=== PATIENT | male | born 1940 | race Caucasian/White ===

== ENCOUNTER 2019-02-25 13:01 | Inpatient (IN) | payer OTHER ==
[~2019-02-25] VITALS: Ht 171.4 cm; Wt 72.2 kg
[2019-02-25] MEDS: METOPROLOL 25 MG TAB PO SCH (03:16)
[2019-02-25] MEDS: INSULIN ASPART [NOVOLOG] 3 ML PEN SC SCH (03:16)
--- NOTE | 2019-02-25 13:05 | ERD ---
ER Documentation Chief Complaint Chief Complaint Dizziness HPI The patient is a 78-year-old male, presenting to the ER because of dizziness. He was waiting in the waiting room for dialysis, when the nurse noted his heart rate was slow in 30, therefore 911 was called to bring him to the hospital. He complained of dizziness when he was moved from the chair to EMS stretcher. He denies headache, neck pain, chest pain, dyspnea, abdominal pain, vomiting, dysuria, diarrhea. He used to smoke until 3 years ago, denies drinking Past medical history: Chronic kidney disease on hemodialysis Sunday and Sunday, diabetes mellitus, dyslipidemia Past surgical history: Left upper extremity AV fistula ROS All systems reviewed and are negative except as per history of present illness. Medications Home Meds Reported Medications Losartan Potassium* (Losartan Potassium*) 25 Mg Tablet, 25 MG PO DAILY, TAB 02/25/19 Furosemide* (Furosemide*) 40 Mg Tablet, 40 MG PO BID, TAB 02/25/19 Metoprolol Tartrate* (Lopressor*) 25 Mg Tab, 25 MG PO BID, #60 TAB 02/25/19 Sevelamer Carbonate* (Renvela*) 800 Mg Tablet, 1.6 GM PO WITH MEALS, TAB 02/25/19 Amlodipine Besylate* (Amlodipine Besylate*) 10 Mg Tablet, 10 MG PO DAILY, #30 TAB 02/25/19 Hydralazine Hcl* (Hydralazine Hcl*) 50 Mg Tab, 50 MG PO Q6H PRN for HTN, #60 TAB 02/25/19 Allergies Allergies: Coded Allergies: No Known Allergy (Unverified , 02/25/19) Physical Exam Vitals Vital Signs Date Temp Pulse Resp B/P (MAP) Pulse Ox O2 O2 Flow FiO2 Time Delivery Rate 02/25/19 91 21 140/51 97 High Flow 10.0 14:00 (80) 02/25/19 98 21 139/94 97 High Flow 10.0 13:46 (109) 02/25/19 42 17 147/47 97 Nasal 2.0 13:30 (80) Cannula 02/25/19 Nasal 2 13:22 Cannula 02/25/19 42 21 148/50 97 Room Air 2.0 13:21 (82) Nasal Cannula 02/25/19 41 20 100 Nasal 2.0 13:18 Cannula 02/25/19 97.6 40 20 136/42 100 13:13 (73) Physical Exam Const: No acute distress. Head: Atraumatic. Eyes: Normal Conjunctiva. ENT: Normal External Ears, Nose and Mouth. Neck: Full range of motion. No meningismus. Resp: Clear to auscultation bilaterally. Cardio: Regular bradycardic Abd: Soft, non distended, normal bowel sounds, non tender. Skin: No petechiae or rashes. Back: No midline or flank tenderness. Ext: No cyanosis, or edema. Neur: Awake and alert. No focal deficit Psych: Normal Mood and Affect. Result Diagram: 02/25/19 1320 02/25/19 1320 Results 24 hrs Laboratory Tests Test 02/25/19 13:20 02/25/19 13:21 02/25/19 13:48 02/25/19 14:09 White Blood Count 5.6 10^3/ul Red Blood Count 3.19 10^6/ul Hemoglobin 10.1 g/dl Hematocrit 33.0 % Mean Corpuscular 103.4 fl Volume Mean Corpuscular 31.7 pg Hemoglobin Mean Corpuscular 30.6 g/dl Hemoglobin Concent Red Cell 13.7 % Distribution Width Platelet Count 95 10^3/UL Mean Platelet 13.3 fl Volume Immature 0.400 % Granulocytes % Neutrophils % 56.4 % Lymphocytes % 31.7 % Monocytes % 9.9 % Eosinophils % 1.1 % Basophils % 0.5 % Nucleated Red Blood 0.0 /100WBC Cells % Immature 0.020 10^3/ul Granulocytes # Neutrophils # 3.1 10^3/ul Lymphocytes # 1.8 10^3/ul Monocytes # 0.6 10^3/ul Eosinophils # 0.1 10^3/ul Basophils # 0.0 10^3/ul Nucleated Red Blood 0.0 10^3/ul Cells # Prothrombin Time 12.8 Sec Prothrombin Time 1.0 Ratio INR International 0.95 Normalized Ratio Activated 36.6 Sec Partial Thromboplas t Time Sodium Level 135 mmol/L Potassium Level 7.1 mmol/L Chloride Level 102 mmol/L Carbon Dioxide 18 mmol/L Level Anion Gap 15 Blood Urea Nitrogen 56 mg/dl Creatinine 8.02 mg/dl Est Glomerular mL/min Filtrat Rate mL/min Glucose Level 95 mg/dl Calcium Level 9.7 mg/dl Magnesium Level 2.2 mg/dl Total Bilirubin 0.0 mg/dl Direct Bilirubin 0.00 mg/dl Indirect Bilirubin 0.0 mg/dl Aspartate Amino 20 IU/L Transf (AST/SGOT) Alanine 11 IU/L Aminotransferase (A LT/SGPT) Alkaline 47 IU/L Phosphatase Troponin I < 0.012 ng/ml Total Protein 7.4 g/dl Albumin 4.3 g/dl Globulin 3.10 g/dl Albumin/Globulin 1.38 Ratio Bedside Glucose 93 mg/dL 103 mg/dL 296 mg/dL Current Medications Medications Dose Sig/Fredy Start Time Status Last (Trade) Ordered Route PRN Stop Time Admin Dose Reason Admin Albuterol 15 mg ONCE STAT 02/25/19 DC 02/25/19 (Proventil INH 13:10 13:27 0.5% (Neb)) 02/25/19 13:13 Calcium 1,000 mg ONCE STAT 02/25/19 DC 02/25/19 Chloride IV 13:10 13:49 (Ca Chloride 02/25/19 13:13 10% Syg) Dextrose 100 ml ONCE ONCE 02/25/19 DC 02/25/19 (D50w IV 13:30 13:49 Syringe) 02/25/19 13:31 Insulin 10 unit ONCE STAT 02/25/19 DC 02/25/19 Human IVP 13:13 13:51 Regular 02/25/19 13:15 (Humulin R) Dextrose ONCE PRN 02/25/19 (D50w IV DECREASED 13:30 Syringe) GLUCOSE Sodium 30 gm ONCE ONCE 02/25/19 DC Polystyrene PO 14:30 Sulfonate 02/25/19 14:31 (Kayexalate) Procedures/[place] [id number] Radiology Main Line: [phone] DIAGNOSTIC IMAGING REPORT Patient: LEI DELCID : 1940 Age: 78 Sex: M MR #: [id number] DOS: 02/25/19 1305 Ordering MD: ABDULLAHI RAJAN MD Location: E/R Room/Bed: PROCEDURE: XR Chest. CLINICAL INDICATION: Shortness of breath TECHNIQUE: Single portable view of the chest was obtained COMPARISON: No priors for comparison FINDINGS: The trachea is midline. The cardiac silhouette and pulmonary vascularity are prominent. The lungs are clear. The costophrenic angles are sharp. Atherosclerotic calcification of the aorta. IMPRESSION: 1. Cardiomegaly and borderline central pulmonary vascular congestion. 2. Atherosclerotic disease of the aorta. RPTAT: AAPP Physician Nathan Date Time Electronically viewed and signed by Viktoriya Gagnon Physician on 02/25/2019 13:39 JL/ CC: ABDULLAHI RAJAN MD [id number] EKG: At 1:08 PM read by emergency physician Rate/Rhythm: Sinus bradycardia 41 beats/min QRS, ST, T-waves: No ST elevation, no T inversion, first-degree AV block, left bundle branch block Impression: Abnormal EKG EKG: At 2:20 PM after hyperkalemia treatment read by emergency physician Rate/Rhythm: Normal Sinus Rhythm 82 beats/min QRS, ST, T-waves: No ST elevation, no T inversion, 1st degree AV block, RWA, NSIVB Impression: Abnormal EKG MEDICAL MAKING DECISION: The patient is a 78-year-old male, presenting with acute bradycardia arrhythmia most likely due to acute hyperkalemia, acute fluid overload. He was immediately treated as soon as he arrived to the ER after I reviewed the EKG that show peaked T waves with albuterol 15 mg nebulizer, calcium chloride 1 g IV, 2 Ampules of D50 IV, 10 units of regular insulin IV and Kayexalate 30 g p.o. for presumed acute hyperkalemia. He responded well to the aforementioned treatment, he returned to normal sinus rhythm, potassium came back at 7.1 The differential diagnoses considered include but are not limited to dietary noncompliance, missed dialysis, electrolyte imbalance, sick sinus syndrome, ACS Critical Care: Time: 35 minutes excluding all billable procedures. Treatments/Evaluations: Close monitoring and treatment of unstable vital signs, cardiorespiratory, and neurologic status, while maintaining tight balance of fluid, respiratory, and cardiac interventions. Consultation: I discussed the patient with the [facility] physician Dr. Alonzo at 2:20 PM, who was made aware of the lab, the treatment, the patient condition. He authorized the admission to panel Departure Diagnosis: Primary Impression: Hyperkalemia Additional Impressions: Bradyarrhythmia Anemia Fluid overload Condition: Serious Comments I discussed the findings with the patient. I discussed the patient with Dr. Adhikari at 2:25 PM, who was made aware of the lab, the treatment, the patient condition and the need for emergent dialysis. The patient is admitted to telemetry Disclaimer: Inadvertent spelling and grammatical errors are likely due to EHR/dictation software use and do not reflect on the overall quality of patient care. Also, please note that the electronic time recorded on this note does not necessarily reflect the actual time of the patient encounter. ABDULLAHI RAJAN MD Feb 25, 2019 13:05
[2019-02-25] MEDS ORDERED: CA CHLORIDE 10% 10 ML SYRINGE IV STA (13:10)
[2019-02-25] MEDS ORDERED: ALBUTEROL 0.5% (NEB) 2.5 MG/0.5 ML AMP INH STA (13:10)
[2019-02-25] MEDS ORDERED: INSULIN REGULAR, HUMAN 100 UNIT/1 ML 3ML VIAL IVP STA (13:13)
[2019-02-25] MEDS ORDERED: DEXTROSE 50% 50 ML SYRINGE IV PRN ×3 (13:30→16:00)
[2019-02-25] MEDS ORDERED: DEXTROSE 50% 50 ML SYRINGE IV ONE (13:30)
[2019-02-25] MEDS ORDERED: HYDR-3672 PO (14:12)
[2019-02-25] MEDS ORDERED: AMLO-147 PO (14:13)
[2019-02-25] MEDS ORDERED: METO-448 PO (14:14)
[2019-02-25] MEDS ORDERED: SEVE800T7 PO (14:14)
[2019-02-25] MEDS ORDERED: LOSA25TA12 PO (14:15)
[2019-02-25] MEDS ORDERED: FURO40TA4 PO (14:15)
[2019-02-25] MEDS ORDERED: NA POLYST SULFON 15 GM/60 ML BTL PO ONE (14:30)
--- NOTE | 2019-02-25 15:13 | HP ---
Date/Time of Note Date/Time of Note DATE: 02/25/19 TIME: 15:13 Assessment/Plan VTE Prophylaxis Pharmacological prophylaxis: heparin Lines/Catheters IV [facility]from [facility]): [facility] Assessment/Plan Hospital Course 78-year-old male with comorbidities including hypertension, diabetes mellitus, and end stage renal disease on hemodialysis who was transferred from his dialysis clinic because of reported bradycardia who was found to have underlying hyperkalemia and fluid overload, who will be admitted to inpatient setting for further treatment and evaluation. 1. Reported bradycardia. Possibly secondary to underlying hyperkalemia. Continue telemetry monitoring. Correct underlying hyperkalemia. 2. Hyperkalemia. Status post potassium exchange resting. Patient needs stat hemodialysis. Nephrology has been consulted. 3. Hypertension. Resume antihypertensives. 4. Diabetes mellitus. Start the patient on sliding scale insulin along with basal insulin. Obtain hemoglobin A1c to evaluate the blood glucose control over the past 3 months. 5. Acute encephalopathy. Unknown baseline. Most probably toxic metabolic in origin secondary to underlying electrolyte imbalances. If mental status not improving with hemodialysis, will consider imaging studies of the brain. 6. Normocytic anemia. Most probably anemia of chronic kidney disease. Monitor H&H closely. Plan: The patient will be admitted to inpatient telemetry floor. The patient will be started on a carbohydrate control, low potassium diet. The patient will be started on DVT prophylaxis. The patient will remain a full code. Activities will be with assist. The rest of the patient's management will be based on the clinical course, inputs from consultants, and the results of diagnostic studies. Based on the patient's clinical presentation, he most probably requires at least 1 midnight's stay for further management and evaluation of his clinical presentation. The patient was seen in collaboration with Dr. Adhikari. Result Diagram: 02/25/19 1320 02/25/19 1320 Results 24hrs Laboratory Tests Test 02/25/19 13:20 02/25/19 13:21 02/25/19 13:48 02/25/19 14:09 White Blood Count 5.6 Red Blood Count 3.19 L Hemoglobin 10.1 L Hematocrit 33.0 L Mean Corpuscular 103.4 H Volume Mean Corpuscular 31.7 Hemoglobin Mean Corpuscular 30.6 L Hemoglobin Concent Red Cell 13.7 Distribution Width Platelet Count 95 L Mean Platelet Volume 13.3 H Immature 0.400 Granulocytes % Neutrophils % 56.4 Lymphocytes % 31.7 Monocytes % 9.9 Eosinophils % 1.1 Basophils % 0.5 Nucleated Red Blood 0.0 Cells % Immature 0.020 Granulocytes # Neutrophils # 3.1 Lymphocytes # 1.8 Monocytes # 0.6 Eosinophils # 0.1 Basophils # 0.0 Nucleated Red Blood 0.0 Cells # Prothrombin Time 12.8 Prothrombin Time 1.0 Ratio INR International 0.95 Normalized Ratio Activated 36.6 H Partial Thromboplast Time Sodium Level 135 Potassium Level 7.1 *H Chloride Level 102 Carbon Dioxide Level 18 L Anion Gap 15 H Blood Urea Nitrogen 56 H Creatinine 8.02 H Est Glomerular Filtrat Rate mL/min Glucose Level 95 Calcium Level 9.7 Magnesium Level 2.2 Total Bilirubin 0.0 L Direct Bilirubin 0.00 Indirect Bilirubin 0.0 Aspartate Amino 20 Transf (AST/SGOT) Alanine 11 L Aminotransferase (AL T/SGPT) Alkaline Phosphatase 47 Troponin I < 0.012 Total Protein 7.4 Albumin 4.3 Globulin 3.10 Albumin/Globulin 1.38 Ratio Bedside Glucose 93 103 296 H HPI/ROS Admit Date/Time Admit Date/Time Hx of Present Illness Reason for admission: Transferred from hemodialysis facility because of bradycardia. Hyperkalemia. Consultants 1. Jose Ruano MD, Nephrology. This is a 78-year-old male with a past medical history of hypertension, diabetes mellitus, and end-stage renal disease on hemodialysis T. The patient went to his hemodialysis session today at outpatient hemodialysis clinic and he was waiting for his session. Meanwhile, the nurses noticed that the patient has been bradycardic. Therefore, the patient was brought to the emergency room. The patient is not the best historian. He denied any chest pain, dyspnea, nausea, or diaphoresis. He denied any abdominal pain, diarrhea, or constipation. He denied any fevers or chills. In the emergency room, the patient was noticed to be hyperkalemic (7.1). The patient's chest x-ray was showing cardiomegaly and borderline central pulmonary vascular congestion. The patient was treated with potassium exchange resin, regular insulin IV push, calcium chloride, and inhaled albuterol in the emergenc y room. ROS Constitutional: no complaints Eyes: no complaints ENT: no complaints Respiratory: no complaints Cardiovascular: no complaints Gastrointestinal: no complaints Genitourinary: no complaints Musculoskeletal: no complaints Skin: no complaints Neurologic: confusion Endocrine: no complaints Lymphatic: no complaints Psychological: no complaints Immunologic: no complaints PMH/Family/Social Past Medical History 1. Hypertension. 2. End-stage renal disease on hemodialysis. 3. Diabetes mellitus. Medications Current Medications Dextrose (D50w Syringe) ONCE PRN IV DECREASED GLUCOSE; Start 02/25/19 at 13:30 Coded Allergies: NSAIDS (Non-Steroidal Anti-Inflamma (Verified Allergy, Unknown, 02/26/19) TAKEN FROM MED RECORD FROM [facility] meperidine (Verified Allergy, Unknown, 02/26/19) TAKEN FROM PT RECORD FROM [facility] simvastatin (Verified Allergy, Unknown, 02/26/19) TAKEN FROM MED RECORD FROM [facility] Past Surgical History Left arm AV fistula placement. Social History Lives at home with his spouse. Alcohol Use: none Smoking Status: Former smoker Drug Use: none Exam/Review of Systems Vital Signs Vitals Vital Signs Date Temp Pulse Resp B/P (MAP) Pulse Ox O2 O2 Flow FiO2 Time Delivery Rate 02/25/19 91 21 140/51 97 High Flow 10.0 14:00 (80) 02/25/19 97.6 13:13 Exam Exam General: Adequately build 78 year-old male lying in bed in no apparent distress. HEENT: Normocephalic, atraumatic. Eyes: Anicteric sclerae, conjunctivae clear. ENT: Nasal septum midline, oral mucosa moist. Neck supple. Respiratory: Bilaterally diminished breath sounds. No use of accessory muscles of respiration. No adventitious breath sounds. Cardiovascular: S1, S2 heard. Regular rate and rhythm. Systolic murmur. Abdomen: Soft, nontender, and nondistended. Bowel sounds positive in all 4 quadrants. Genitourinary: Deferred. Extremities: No cyanosis, no clubbing, no edema. Peripheral pulses palpable. Left forearm AV fistula with positive bruit and thrill. Neurologic: The patient is awake and alert. Oriented to self. Disoriented to place, and time. Unable to tell the month or to say who is the president. Skin: Normal skin turgor. No skin rashes. Additional Comments CXR 1. Cardiomegaly and borderline central pulmonary vascular congestion. 2. Atherosclerotic disease of the aorta. SUKHDEV COBURN NP Feb 25, 2019 15:13
[2019-02-25] MEDS ORDERED: ONDANSETRON 4 MG INJ IV PRN (15:30)
[2019-02-25] MEDS ORDERED: NACL 0.9% 3 ML SYG IV SCH (15:30)
[2019-02-25] MEDS ORDERED: ACETAMINOPHEN 325 MG TAB PO PRN (15:30)
--- NOTE | 2019-02-25 15:55 | CONS ---
Assessment/Plan Assessment/Plan Assessment/Plan (Daily) 1. acute hyperkalemia 2. acute fluid overload 3. Bradycardia 4. ESRD on HD TTS schedule 5. H/o HTN 6. H/O DM II 7. H/o HL Plan: s/p Rx for hyperkalemia in ED, will plan for Stat HD today and Routine HD tomorrow Pt regular schedule for HD Is Sun, , Sunday and he follows at [facility] Continue current BP meds, avoid B perlita, Clonidine due to current bradycardia thanks for consultation, I will continue to follow up Consultation Date/Type/Reason Admit Date/Time 02/25/19 Date of Consultation: Feb 25, 2019 Type of Consult Nephrology Reason for Consultation Acute hyperkalemia, ESRD on HD missed HD Requesting Provider: SUKHDEV COBURN NP Date/Time of Note DATE: 02/25/19 TIME: 15:55 Hx of Present Illness 78-year-old male with comorbidities including hypertension, diabetes mellitus, and end stage renal disease on hemodialysis who was transferred from his dialysis clinic because of reported bradycardia who was found to have underlying hyperkalemia and fluid overload, who will be admitted to inpatient setting for further treatment and evaluation. he had a K 7.1 on admission - Received Rx for hyperkalemia. [facility] has been consulted for emergent HD. Pt follows at [facility] and his regular schedule for HD is Sun, , Sunday Constitutional: poor po ENT: congestion Respiratory: pain, cough Cardiovascular: chest pain Gastrointestinal: no complaints Genitourinary: no complaints Musculoskeletal: no complaints Skin: no complaints Neurologic: no complaints Endocrine: no complaints Lymphatic: no complaints Psychological: no complaints Immunologic: no complaints Past Medical History Medical History: diabetes, high cholesterol, hypertension, other (ESRD on HD ) Home Meds Reported Medications Aspirin* (Aspirin* Chew) 81 Mg Tab.chew, 81 MG PO DAILY, TAB.CHEW 02/26/19 Losartan Potassium* (Losartan Potassium*) 25 Mg Tablet, 25 MG PO DAILY, TAB 02/25/19 Furosemide* (Furosemide*) 40 Mg Tablet, 40 MG PO BID, TAB 02/25/19 Metoprolol Tartrate* (Lopressor*) 25 Mg Tab, 25 MG PO BID, #60 TAB 02/25/19 Sevelamer Carbonate* (Renvela*) 800 Mg Tablet, 1.6 GM PO WITH MEALS, TAB 02/25/19 Amlodipine Besylate* (Amlodipine Besylate*) 10 Mg Tablet, 10 MG PO DAILY, #30 TAB 02/25/19 Hydralazine Hcl* (Hydralazine Hcl*) 50 Mg Tab, 50 MG PO Q6H PRN for HTN, #60 TAB 02/25/19 Medications Current Medications Dextrose (D50w Syringe) ONCE PRN IV DECREASED GLUCOSE; Start 02/25/19 at 13:30 IV Flush (NS 3 ml) 3 ml PER PROTOCOL IV ; Start 02/25/19 at 15:30 Ondansetron HCl (Zofran Inj) 4 mg Q6H PRN IV NAUSEA/VOMITING; Start 02/25/19 at 15:30 Acetaminophen (Tylenol Tab) 650 mg Q6H PRN PO .PAIN 1-3 OR TEMP; Start 02/25/19 at 15:30 Heparin Sodium (Porcine) (Heparin (5000 Units/1ml)) 5,000 unit Q12 SC ; Start 02/25/19 at 21:00 Amlodipine Besylate (Norvasc) 10 mg DAILY PO ; Start 02/26/19 at 09:00 Losartan Potassium (Cozaar) 25 mg DAILY PO ; Start 02/26/19 at 09:00 Metoprolol Tartrate (Lopressor) 25 mg BID PO ; Start 02/25/19 at 21:00 Sevelamer Carbonate (Renvela) 1.6 gm WITH MEALS PO ; Start 02/25/19 at 18:00 Insulin Glargine (Lantus) 13 units DAILY@2000 SC ; Start 02/25/19 at 20:00 Insulin Aspart (Novolog Insulin Pen) NOVOLOG *MILD* ALGORITHM WITH MEALS BEDTIME SC ; Start 02/25/19 at 18:00 Miscellaneous Information 1 ea NOTE XX ; Start 02/25/19 at 16:00 Glucose (Glutose) 15 gm Q15M PRN PO DECREASED GLUCOSE; Start 02/25/19 at 16:00 Glucose (Glutose) 22.5 gm Q15M PRN PO DECREASED GLUCOSE; Start 02/25/19 at 16:00 Dextrose (D50w Syringe) 25 ml Q15M PRN IV DECREASED GLUCOSE; Start 02/25/19 at 16:00 Dextrose (D50w Syringe) 50 ml Q15M PRN IV DECREASED GLUCOSE; Start 02/25/19 at 16:00 Glucagon (Glucagen) 1 mg Q15M PRN IM DECREASED GLUCOSE; Start 02/25/19 at 16:00 Glucose (Glutose) 15 gm Q15M PRN BUCCAL DECREASED GLUCOSE; Start 02/25/19 at 16:00 Allergies: Coded Allergies: NSAIDS (Non-Steroidal Anti-Inflamma (Verified Allergy, Unknown, 02/26/19) TAKEN FROM MED RECORD FROM [facility] meperidine (Verified Allergy, Unknown, 02/26/19) TAKEN FROM PT RECORD FROM [facility] simvastatin (Verified Allergy, Unknown, 02/26/19) TAKEN FROM MED RECORD FROM [facility] Past Surgical History Past Surgical Hx: other (AV fistula for HD access ) Family History Significant Family History: no pertinent family hx Social History Alcohol Use: none Smoking Status: Former smoker Drug Use: none Exam/Review of Systems Exam Vitals Vital Signs Date Temp Pulse Resp B/P (MAP) Pulse Ox O2 O2 Flow FiO2 Time Delivery Rate 02/25/19 91 21 140/51 97 High Flow 10.0 14:00 (80) 02/25/19 97.6 13:13 Constitutional: alert Psych: no complaints Head: normocephalic Eyes: nl conjunctiva ENMT: nl external ears & nose Neck: supple, non-tender Respiratory: clear to auscultation, congested cough, diminished breath sounds Cardiovascular: regular rate and rhythm, nl pulses Gastrointestinal: soft, non-tender Musculoskeletal: nl extremities to inspection, muscle weakness, swelling Extremities: normal pulses Neurological: IT SALES EXECUTIVE II-XII intact, nl mental status, nl speech, nl strength Skin: nl turgor Lymph: nl lymph nodes Results Result Diagram: 02/25/19 1320 02/25/19 1320 Results 24hrs Laboratory Tests Test 02/25/19 13:20 02/25/19 13:21 02/25/19 13:48 02/25/19 14:09 White Blood Count 5.6 Red Blood Count 3.19 L Hemoglobin 10.1 L Hematocrit 33.0 L Mean Corpuscular 103.4 H Volume Mean Corpuscular 31.7 Hemoglobin Mean Corpuscular 30.6 L Hemoglobin Concent Red Cell 13.7 Distribution Width Platelet Count 95 L Mean Platelet Volume 13.3 H Immature 0.400 Granulocytes % Neutrophils % 56.4 Lymphocytes % 31.7 Monocytes % 9.9 Eosinophils % 1.1 Basophils % 0.5 Nucleated Red Blood 0.0 Cells % Immature 0.020 Granulocytes # Neutrophils # 3.1 Lymphocytes # 1.8 Monocytes # 0.6 Eosinophils # 0.1 Basophils # 0.0 Nucleated Red Blood 0.0 Cells # Prothrombin Time 12.8 Prothrombin Time 1.0 Ratio INR International 0.95 Normalized Ratio Activated 36.6 H Partial Thromboplast Time Sodium Level 135 Potassium Level 7.1 *H Chloride Level 102 Carbon Dioxide Level 18 L Anion Gap 15 H Blood Urea Nitrogen 56 H Creatinine 8.02 H Est Glomerular Filtrat Rate mL/min Glucose Level 95 Calcium Level 9.7 Magnesium Level 2.2 Total Bilirubin 0.0 L Direct Bilirubin 0.00 Indirect Bilirubin 0.0 Aspartate Amino 20 Transf (AST/SGOT) Alanine 11 L Aminotransferase (AL T/SGPT) Alkaline Phosphatase 47 Troponin I < 0.012 Total Protein 7.4 Albumin 4.3 Globulin 3.10 Albumin/Globulin 1.38 Ratio Bedside Glucose 93 103 296 H Medications Medication Current Medications Dextrose (D50w Syringe) ONCE PRN IV DECREASED GLUCOSE; Start 02/25/19 at 13:30 IV Flush (NS 3 ml) 3 ml PER PROTOCOL IV ; Start 02/25/19 at 15:30 Ondansetron HCl (Zofran Inj) 4 mg Q6H PRN IV NAUSEA/VOMITING; Start 02/25/19 at 15:30 Acetaminophen (Tylenol Tab) 650 mg Q6H PRN PO .PAIN 1-3 OR TEMP; Start 02/25/19 at 15:30 Heparin Sodium (Porcine) (Heparin (5000 Units/1ml)) 5,000 unit Q12 SC ; Start 02/25/19 at 21:00 Amlodipine Besylate (Norvasc) 10 mg DAILY PO ; Start 02/26/19 at 09:00 Losartan Potassium (Cozaar) 25 mg DAILY PO ; Start 02/26/19 at 09:00 Metoprolol Tartrate (Lopressor) 25 mg BID PO ; Start 02/25/19 at 21:00 Sevelamer Carbonate (Renvela) 1.6 gm WITH MEALS PO ; Start 02/25/19 at 18:00 Insulin Glargine (Lantus) 13 units DAILY@2000 SC ; Start 02/25/19 at 20:00 Insulin Aspart (Novolog Insulin Pen) NOVOLOG *MILD* ALGORITHM WITH MEALS BEDTIME SC ; Start 02/25/19 at 18:00 Miscellaneous Information 1 ea NOTE XX ; Start 02/25/19 at 16:00 Glucose (Glutose) 15 gm Q15M PRN PO DECREASED GLUCOSE; Start 02/25/19 at 16:00 Glucose (Glutose) 22.5 gm Q15M PRN PO DECREASED GLUCOSE; Start 02/25/19 at 16:00 Dextrose (D50w Syringe) 25 ml Q15M PRN IV DECREASED GLUCOSE; Start 02/25/19 at 16:00 Dextrose (D50w Syringe) 50 ml Q15M PRN IV DECREASED GLUCOSE; Start 02/25/19 at 16:00 Glucagon (Glucagen) 1 mg Q15M PRN IM DECREASED GLUCOSE; Start 02/25/19 at 16:00 Glucose (Glutose) 15 gm Q15M PRN BUCCAL DECREASED GLUCOSE; Start 02/25/19 at 16:00 ESTEFANÍA SANCHEZ MD Feb 25, 2019 15:55
[2019-02-25] MEDS ORDERED: GLUCOSE GEL 15 GRAM TUBE BUCCAL PRN (16:00)
[2019-02-25] MEDS ORDERED: GLUCOSE GEL 15 GRAM TUBE PO PRN ×2 (16:00)
[2019-02-25] MEDS ORDERED: ALBUMIN HUMAN 25% 100 ML IV PRN (16:00)
[2019-02-25] MEDS ORDERED: HEPARIN 1000 UNITS/ML 10 ML INJ HE SCH ×2 (16:00)
[2019-02-25] MEDS ORDERED: SODIUM CHLORIDE 0.9% 1L BAG IV PRN (16:00)
[2019-02-25] MEDS ORDERED: GLUCAGON 1 MG INJ IM PRN (16:00)
[2019-02-25] MEDS ORDERED: SODIUM POLYSTYRENE 15 GM KIT (POWDER + SORBITOL) PO ONE (17:30)
[2019-02-25] MEDS ORDERED: INSULIN GLARGINE [LANTus] (100 UNITS/ML) SYG SC SCH (20:00)
[2019-02-25] MEDS: SEVELAMER CARBONATE 0.8 GM PKT PO SCH (23:28)
[2019-02-25] MEDS: HEPARIN 5,000 UNIT/1 ML VIAL SC SCH (23:33)
[2019-02-26] VITALS (23 sets, daily range): BP systolic 143–188; BP diastolic 51–77; PULSE 53–78; RESP 18–20; Ht 171.4 cm; Wt 72.2 kg
[2019-02-26] MEDS ORDERED: ASPI-903 PO (04:24)
[2019-02-26] MEDS: INSULIN ASPART [NOVOLOG] 3 ML PEN SC SCH ×4 (07:55→22:17)
[2019-02-26] MEDS: METOPROLOL 25 MG TAB PO SCH ×2 (08:13→22:17)
[2019-02-26] MEDS: LOSARTAN 25 MG TAB PO SCH (08:14)
[2019-02-26] MEDS: AMLODIPINE 10 MG TAB PO SCH (08:14)
[2019-02-26] MEDS: SEVELAMER CARBONATE 0.8 GM PKT PO SCH ×3 (08:16→17:39)
[2019-02-26] MEDS: HEPARIN 5,000 UNIT/1 ML VIAL SC SCH ×2 (08:16→22:28)
--- NOTE | 2019-02-26 13:43 | PN ---
Date/Time of Note Date/Time of Note DATE: 02/26/19 TIME: 13:42 Assessment/Plan VTE Prophylaxis Risk score (from Nsg)>0 risk: 6 SCD applied (from Nsg): Yes Pharmacological prophylaxis: heparin Lines/Catheters IV Catheter Type (from Nrsg): Saline Lock Urinary Cath still in place: No Assessment/Plan Hospital Course SUBJECTIVE: Denies any complaints. OBJECTIVE: Physical Exam General: Adequately build 78 year-old male lying in bed in no apparent distress. HEENT: Normocephalic, atraumatic. Eyes: Anicteric sclerae, conjunctivae clear. ENT: Nasal septum midline, oral mucosa moist. Neck supple. Respiratory: Bilaterally diminished breath sounds. No use of accessory muscles of respiration. No adventitious breath sounds. Cardiovascular: S1, S2 heard. Regular rate and rhythm. Systolic murmur. Abdomen: Soft, nontender, and nondistended. Bowel sounds positive in all 4 quadrants. Genitourinary: Deferred. Extremities: No cyanosis, no clubbing, no edema. Peripheral pulses palpable. Left forearm AV fistula with positive bruit and thrill. Neurologic: The patient is awake and alert. Oriented to self and place. Unable to tell the correct month. Able to say who is the president. Skin: Normal skin turgor. No skin rashes. Labs & Vitals per chart ASSESSMENT & PLAN 78-year-old male with comorbidities including hypertension, diabetes mellitus, and end stage renal disease on hemodialysis who was transferred from his dialysis clinic because of reported bradycardia who was found to have underlying hyperkalemia and fluid overload, who was admitted to inpatient setting for further treatment and evaluation. 1. Reported bradycardia. Possibly secondary to underlying hyperkalemia. Continue telemetry monitoring. Correct underlying hyperkalemia. 2. Hyperkalemia. Status post potassium exchange resin. HD as per nephrology. Nephrology has been consulted. 3. Hypertension. Continue antihypertensives. 4. Diabetes mellitus. Continue the patient on sliding scale insulin along with basal insulin. A1C 4.8. Possibly burned-out diabetes. 5. Acute encephalopathy. Most probably toxic metabolic in origin secondary to underlying electrolyte i mbalances. Improved. 6. Normocytic anemia. Most probably anemia of chronic kidney disease. Monitor H&H closely. 7. Fluids, electrolytes, and nutrition. Renal, carbohydrate controlled diet. 8. DVT prophylaxis. Subcutaneous heparin. 9. Plan Continue hemodialysis as per nephrology. Await 1 more session of hemodialysis before discharging the patient back home. The patient was seen in collaboration with Dr. Adhikari. Result Diagram: 02/26/19 0635 02/26/19 0635 Results 24hrs Laboratory Tests Test 02/25/19 13:48 02/25/19 14:09 02/25/19 23:19 02/26/19 06:35 Bedside Glucose 103 296 H 153 White Blood Count 5.1 Red Blood Count 2.97 L Hemoglobin 9.1 L Hematocrit 29.6 L Mean Corpuscular 99.7 Volume Mean Corpuscular 30.6 Hemoglobin Mean Corpuscular 30.7 L Hemoglobin Concent Red Cell 13.9 Distribution Width Platelet Count 79 L Mean Platelet Volume 13.2 H Immature 0.400 Granulocytes % Neutrophils % 61.1 Lymphocytes % 26.8 Monocytes % 10.3 Eosinophils % 1.0 Basophils % 0.4 Nucleated Red Blood 0.0 Cells % Immature 0.020 Granulocytes # Neutrophils # 3.1 Lymphocytes # 1.4 Monocytes # 0.5 Eosinophils # 0.1 Basophils # 0.0 Nucleated Red Blood 0.0 Cells # Sodium Level 137 Potassium Level 7.1 *H Chloride Level 102 Carbon Dioxide Level 19 L Anion Gap 16 H Blood Urea Nitrogen 65 H Creatinine 9.41 H Est Glomerular Filtrat Rate mL/min Glucose Level 63 #L Calcium Level 10.0 Phosphorus Level 4.5 Magnesium Level 2.1 Total Bilirubin 0.1 L Direct Bilirubin 0.00 Indirect Bilirubin 0.1 Aspartate Amino 18 Transf (AST/SGOT) Alanine 17 Aminotransferase (AL T/SGPT) Alkaline Phosphatase 42 Creatine Kinase 65 Creatine Kinase 0.4 Index Creatinine Kinase MB 0.23 (Mass) Troponin I < 0.012 Total Protein 6.5 Albumin 3.9 Globulin 2.60 Albumin/Globulin 1.50 Ratio Triglycerides Level 39 Cholesterol Level 99 L LDL Cholesterol, 38 Calculated HDL Cholesterol 53 Cholesterol/HDL 1.8 Ratio Hepatitis B Surface NEGATIVE Antigen Test 02/26/19 08:20 02/26/19 12:26 Bedside Glucose 114 185 Exam/Review of Systems Exam Vitals Vital Signs Date Temp Pulse Resp B/P (MAP) Pulse Ox O2 O2 Flow FiO2 Time Delivery Rate 02/26/19 98.5 71 18 153/61 98 Room Air 11:38 (91) 02/25/19 10.0 14:00 Results Results 24hrs Laboratory Tests Test 02/25/19 13:48 02/25/19 14:09 02/25/19 23:19 02/26/19 06:35 Bedside Glucose 103 296 H 153 White Blood Count 5.1 Red Blood Count 2.97 L Hemoglobin 9.1 L Hematocrit 29.6 L Mean Corpuscular 99.7 Volume Mean Corpuscular 30.6 Hemoglobin Mean Corpuscular 30.7 L Hemoglobin Concent Red Cell 13.9 Distribution Width Platelet Count 79 L Mean Platelet Volume 13.2 H Immature 0.400 Granulocytes % Neutrophils % 61.1 Lymphocytes % 26.8 Monocytes % 10.3 Eosinophils % 1.0 Basophils % 0.4 Nucleated Red Blood 0.0 Cells % Immature 0.020 Granulocytes # Neutrophils # 3.1 Lymphocytes # 1.4 Monocytes # 0.5 Eosinophils # 0.1 Basophils # 0.0 Nucleated Red Blood 0.0 Cells # Sodium Level 137 Potassium Level 7.1 *H Chloride Level 102 Carbon Dioxide Level 19 L Anion Gap 16 H Blood Urea Nitrogen 65 H Creatinine 9.41 H Est Glomerular Filtrat Rate mL/min Glucose Level 63 #L Calcium Level 10.0 Phosphorus Level 4.5 Magnesium Level 2.1 Total Bilirubin 0.1 L Direct Bilirubin 0.00 Indirect Bilirubin 0.1 Aspartate Amino 18 Transf (AST/SGOT) Alanine 17 Aminotransferase (AL T/SGPT) Alkaline Phosphatase 42 Creatine Kinase 65 Creatine Kinase 0.4 Index Creatinine Kinase MB 0.23 (Mass) Troponin I < 0.012 Total Protein 6.5 Albumin 3.9 Globulin 2.60 Albumin/Globulin 1.50 Ratio Triglycerides Level 39 Cholesterol Level 99 L LDL Cholesterol, 38 Calculated HDL Cholesterol 53 Cholesterol/HDL 1.8 Ratio Hepatitis B Surface NEGATIVE Antigen Test 02/26/19 08:20 02/26/19 12:26 Bedside Glucose 114 185 Medications Medication Current Medications Dextrose (D50w Syringe) ONCE PRN IV DECREASED GLUCOSE; Start 02/25/19 at 13:30 IV Flush (NS 3 ml) 3 ml PER PROTOCOL IV ; Start 02/25/19 at 15:30 Ondansetron HCl (Zofran Inj) 4 mg Q6H PRN IV NAUSEA/VOMITING; Start 02/25/19 at 15:30 Acetaminophen (Tylenol Tab) 650 mg Q6H PRN PO .PAIN 1-3 OR TEMP; Start 02/25/19 at 15:30 Heparin Sodium (Porcine) (Heparin (5000 Units/1ml)) 5,000 unit Q12 SC Last administered on 02/26/19at 08:16; Admin Dose 5,000 UNIT; Start 02/25/19 at 21:00 Amlodipine Besylate (Norvasc) 10 mg DAILY PO ; Start 02/26/19 at 09:00 Losartan Potassium (Cozaar) 25 mg DAILY PO ; Start 02/26/19 at 09:00 Metoprolol Tartrate (Lopressor) 25 mg BID PO ; Start 02/25/19 at 21:00 Sevelamer Carbonate (Renvela) 1.6 gm WITH MEALS PO Last administered on 02/26/19at 12:27; Admin Dose 1.6 GM; Start 02/25/19 at 18:00 Insulin Glargine (Lantus) 13 units DAILY@2000 SC Last administered on 02/25/19at 20:00; Admin Dose 13 UNITS; Start 02/25/19 at 20:00 Insulin Aspart (Novolog Insulin Pen) NOVOLOG *MILD* ALGORITHM WITH MEALS BEDTIME SC Last administered on 02/26/19at 12:29; Admin Dose 2 UNIT; Start at 18:00 Miscellaneous Information 1 ea NOTE XX ; Start 02/25/19 at 16:00 Glucose (Glutose) 15 gm Q15M PRN PO DECREASED GLUCOSE; Start 02/25/19 at 16:00 Glucose (Glutose) 22.5 gm Q15M PRN PO DECREASED GLUCOSE; Start 02/25/19 at 16:00 Dextrose (D50w Syringe) 25 ml Q15M PRN IV DECREASED GLUCOSE; Start 02/25/19 at 16:00 Dextrose (D50w Syringe) 50 ml Q15M PRN IV DECREASED GLUCOSE; Start 02/25/19 at 16:00 Glucagon (Glucagen) 1 mg Q15M PRN IM DECREASED GLUCOSE; Start 02/25/19 at 16:00 Glucose (Glutose) 15 gm Q15M PRN BUCCAL DECREASED GLUCOSE; Start 02/25/19 at 16:00 Heparin Sodium (Porcine) (Heparin (1000 Units/ml)) 1,000 unit WITH DIALYSIS HE ; Start 02/25/19 at 16:00 Heparin Sodium (Porcine) (Heparin (1000 Units/ml)) 1,000 unit WITH DIALYSIS HE ; Start 02/25/19 at 16:00 Albumin Human 100 ml @ 100 mls/hr WITH DIALYSIS PRN IV SBP <90 DURING DIALYSIS; Start 02/25/19 at 16:00 Sodium Chloride (NS) -To prime the dialy... DIRECTED FOR HD PRN IV HD; Start 02/25/19 at 16:00 SUKHDEV COBURN NP Feb 26, 2019 13:43
--- NOTE | 2019-02-26 13:43 | CONS ---
Assessment/Plan Assessment/Plan Assessment/Plan (Daily) 1. acute hyperkalemia- now resolved 2. acute fluid overload 3. Bradycardia 4. ESRD on HD TTS schedule 5. H/o HTN 6. H/O DM II 7. H/o HL Plan: pt had a episode of two seizures durng HD today so HD was stopped, BP stable - will plan for HD tomorrow Pt regular schedule for HD Is Sun, , Sunday and he follows at [facility] Continue current BP meds, avoid B perlita, Clonidine due to current bradycardia will follow up Consultation Date/Type/Reason Admit Date/Time Feb 25, 2019 at 14:24 Initial Consult Date 02/25/19 Type of Consult Nephrology Requesting Provider: SUKHDEV COBURN NP Date/Time of Note DATE: 02/26/19 TIME: 13:43 24 HR Interval Summary Free Text/Dictation pt had a episode of two seizures durng HD today so HD was stopped, BP stable Exam/Review of Systems Exam Vitals Vital Signs Date Temp Pulse Resp B/P (MAP) Pulse Ox O2 O2 Flow FiO2 Time Delivery Rate 02/26/19 98.5 71 18 153/61 98 Room Air 11:38 (91) 02/25/19 10.0 14:00 Exam Constitutional: alert, awake, little sleepy Respiratory: clear to auscultation, congested cough, diminished breath sounds Cardiovascular: regular rate and rhythm, nl pulses Gastrointestinal: soft, non-tender Musculoskeletal: nl extremities to inspection, muscle weakness, swelling Extremities: normal pulses Neurological: TAX COLLECTION COORDINATOR II-XII intact, nl mental status, nl speech, nl strength Results Result Diagram: 02/26/1935 02/26/1935 Results 24hrs Laboratory Tests Test 02/25/19 13:48 02/25/19 14:09 02/25/19 23:19 02/26/19 06:35 Bedside Glucose 103 296 H 153 White Blood Count 5.1 Red Blood Count 2.97 L Hemoglobin 9.1 L Hematocrit 29.6 L Mean Corpuscular 99.7 Volume Mean Corpuscular 30.6 Hemoglobin Mean Corpuscular 30.7 L Hemoglobin Concent Red Cell 13.9 Distribution Width Platelet Count 79 L Mean Platelet Volume 13.2 H Immature 0.400 Granulocytes % Neutrophils % 61.1 Lymphocytes % 26.8 Monocytes % 10.3 Eosinophils % 1.0 Basophils % 0.4 Nucleated Red Blood 0.0 Cells % Immature 0.020 Granulocytes # Neutrophils # 3.1 Lymphocytes # 1.4 Monocytes # 0.5 Eosinophils # 0.1 Basophils # 0.0 Nucleated Red Blood 0.0 Cells # Sodium Level 137 Potassium Level 7.1 *H Chloride Level 102 Carbon Dioxide Level 19 L Anion Gap 16 H Blood Urea Nitrogen 65 H Creatinine 9.41 H Est Glomerular Filtrat Rate mL/min Glucose Level 63 #L Calcium Level 10.0 Phosphorus Level 4.5 Magnesium Level 2.1 Total Bilirubin 0.1 L Direct Bilirubin 0.00 Indirect Bilirubin 0.1 Aspartate Amino 18 Transf (AST/SGOT) Alanine 17 Aminotransferase (AL T/SGPT) Alkaline Phosphatase 42 Creatine Kinase 65 Creatine Kinase 0.4 Index Creatinine Kinase MB 0.23 (Mass) Troponin I < 0.012 Total Protein 6.5 Albumin 3.9 Globulin 2.60 Albumin/Globulin 1.50 Ratio Triglycerides Level 39 Cholesterol Level 99 L LDL Cholesterol, 38 Calculated HDL Cholesterol 53 Cholesterol/HDL 1.8 Ratio Hepatitis B Surface NEGATIVE Antigen Test 02/26/19 08:20 02/26/19 12:26 Bedside Glucose 114 185 Medications Medication Current Medications Dextrose (D50w Syringe) ONCE PRN IV DECREASED GLUCOSE; Start 02/25/19 at 13:30 IV Flush (NS 3 ml) 3 ml PER PROTOCOL IV ; Start 02/25/19 at 15:30 Ondansetron HCl (Zofran Inj) 4 mg Q6H PRN IV NAUSEA/VOMITING; Start 02/25/19 at 15:30 Acetaminophen (Tylenol Tab) 650 mg Q6H PRN PO .PAIN 1-3 OR TEMP; Start 02/25/19 at 15:30 Heparin Sodium (Porcine) (Heparin (5000 Units/1ml)) 5,000 unit Q12 SC Last administered on 02/26/19at 08:16; Admin Dose 5,000 UNIT; Start 02/25/19 at 21:00 Amlodipine Besylate (Norvasc) 10 mg DAILY PO ; Start 02/26/19 at 09:00 Losartan Potassium (Cozaar) 25 mg DAILY PO ; Start 02/26/19 at 09:00 Metoprolol Tartrate (Lopressor) 25 mg BID PO ; Start 02/25/19 at 21:00 Sevelamer Carbonate (Renvela) 1.6 gm WITH MEALS PO Last administered on 02/26/19at 12:27; Admin Dose 1.6 GM; Start 02/25/19 at 18:00 Insulin Glargine (Lantus) 13 units DAILY@2000 SC Last administered on 02/25/19at 20:00; Admin Dose 13 UNITS; Start 02/25/19 at 20:00 Insulin Aspart (Novolog Insulin Pen) NOVOLOG *MILD* ALGORITHM WITH MEALS BEDTIME SC Last administered on 02/26/19at 12:29; Admin Dose 2 UNIT; Start 02/25/19 at 18:00 Miscellaneous Information 1 ea NOTE XX ; Start 02/25/19 at 16:00 Glucose (Glutose) 15 gm Q15M PRN PO DECREASED GLUCOSE; Start 02/25/19 at 16:00 Glucose (Glutose) 22.5 gm Q15M PRN PO DECREASED GLUCOSE; Start 02/25/19 at 16:00 Dextrose (D50w Syringe) 25 ml Q15M PRN IV DECREASED GLUCOSE; Start 02/25/19 at 16:00 Dextrose (D50w Syringe) 50 ml Q15M PRN IV DECREASED GLUCOSE; Start 02/25/19 at 16:00 Glucagon (Glucagen) 1 mg Q15M PRN IM DECREASED GLUCOSE; Start 02/25/19 at 16:00 Glucose (Glutose) 15 gm Q15M PRN BUCCAL DECREASED GLUCOSE; Start 02/25/19 at 16:00 Heparin Sodium (Porcine) (Heparin (1000 Units/ml)) 1,000 unit WITH DIALYSIS HE ; Start 02/25/19 at 16:00 Heparin Sodium (Porcine) (Heparin (1000 Units/ml)) 1,000 unit WITH DIALYSIS HE ; Start 02/25/19 at 16:00 Albumin Human 100 ml @ 100 mls/hr WITH DIALYSIS PRN IV SBP <90 DURING DIALYSIS; Start 02/25/19 at 16:00 Sodium Chloride (NS) -To prime the dialy... DIRECTED FOR HD PRN IV HD; Start 02/25/19 at 16:00 ESTEFANÍA SANCHEZ MD Feb 26, 2019 13:43
[2019-02-27] VITALS (17 sets, daily range): BP systolic 138–178; BP diastolic 52–84; PULSE 50–65; RESP 20
[2019-02-27] MEDS ORDERED: hydrALAzine 20 MG INJ IV PRN (01:00)
[2019-02-27] MEDS: INSULIN ASPART [NOVOLOG] 3 ML PEN SC SCH ×2 (07:55→11:50)
[2019-02-27] MEDS: SEVELAMER CARBONATE 0.8 GM PKT PO SCH ×2 (07:55→12:04)
[2019-02-27] MEDS: LOSARTAN 25 MG TAB PO SCH (08:00)
[2019-02-27] MEDS: METOPROLOL 25 MG TAB PO SCH (08:01)
[2019-02-27] MEDS: AMLODIPINE 10 MG TAB PO SCH (08:01)
[2019-02-27] MEDS: HEPARIN 5,000 UNIT/1 ML VIAL SC SCH (08:15)
--- NOTE | 2019-02-27 09:59 | RADRPT ---
Echocardiogram Report Patient Name: Sima DELCIDnt ID: [id number] : [id number] (78y 3m)Study Date: 02/26/2019 1:40:37 PM Gender: [place] #: [id number] Tech: Hugh Snow [facility] Location: [facility] Ref.Physician: SUKHDEV COBURN Height(Cm): BSA: Weight(Kg): Quality: AdequateOrder Physician: SUKHDEV COBURN Account #: Procedures: Echocardiographic Report: Transthoracic echocardiogram with complete 2D, M-Mode, and doppler examination. Indications: Evaluate Left Ventricular function. Measurements: 2D/M Mode Doppler Measurement Value Normal Range Measurement Value Normal Range LVIDd 2D 4.2 [ 4.2 - 5.8 ] cm MV E Peak Octavio 0.7 [ 60.0 - 130.0 ] cm/sec LVIDs 2D 2.8 [ 2.5 - 4.0 ] cm MV A Peak Octavio 0.9 [ 100.0 - 120.0 ] cm/sec LVPWd 2D 1.7 [ 0.6 - 1.0 ] cm MV E/A 0.8 [ 0.8 - 1.5 ] ratio IVSd 2D 1.6 [ 0.6 - 1.0 ] cm MV Decel Time 208 [ 104 - 258 ] msec AoR Diam 2D 3.1 [ 2.6 - 3.4 ] cm MV E/A 0.8 [ 0.8 - 1.5 ] ratio LA Dimen 2D 3.3 [ 3.0 - 4.0 ] cm TR Peak Octavio 3.2 [ 100.0 - 280.0 ] cm/sec TR Peak PG 42.0 mmHg RVSP 45.0 [ 10.0 - 36.0 ] mmHg RA Pressure 3.0 mmHg Findings: Left Ventricle: Normal left ventricular systolic function. Normal left ventricular cavity size. Severe concentric left ventricular hypertrophy. Ejection fraction is visually estimated at 55 %. Tissue Doppler/Mitral Doppler indices are consistent with impaired relaxation (Stage I diastolic dysfunction). Right Ventricle: Normal right ventricular size. Normal right ventricular systolic function. Left Atrium: The left atrium is normal in size. Right Atrium: The right atrium is normal in size. Mitral Valve: Mitral valve leaflets appear mildly thickened. Mild mitral annular calcification. Trace mitral regurgitation. Aortic Valve: Aortic sclerosis without significant stenosis. Tricuspid Valve: Normal appearance of the tricuspid valve. The estimated Peak RVSP is 45 mmHg. There is mild tricuspid regurgitation. Pulmonic Valve: Normal pulmonic valve appearance. Pericardium: Small pericardial effusion. Aorta: Normal aortic root. IVC: Normal size and normal respiratory collapse consistent with normal right atrial pressure. Conclusions: Normal left ventricular systolic function. Normal left ventricular cavity size. Severe concentric left ventricular hypertrophy. Ejection fraction is visually estimated at 55 %. Tissue Doppler/Mitral Doppler indices are consistent with impaired relaxation (Stage I diastolic dysfunction). Mitral valve leaflets appear mildly thickened. Mild mitral annular calcification. Trace mitral regurgitation. Aortic sclerosis without significant stenosis. Normal appearance of the tricuspid valve. The estimated Peak RVSP is 45 mmHg. There is mild tricuspid regurgitation. Small pericardial effusion. Electronically Signed By: Lazaro Venegas 2019-02-27 09:58:36 PDT
--- NOTE | 2019-02-27 10:30 | DS ---
Date/Time of Note Date/Time of Note DATE: 02/27/19 TIME: 10:28 Discharge Summary Admission/Discharge Info Admit Date/Time Feb 25, 2019 at 14:24 Discharge Date/Time Discharge Diagnosis 1. Hyperkalemia. 2. ESRD on HD. 3. Hypertension. 4. Burned-out diabetes mellitus. A1C 4.8. 5. Normocytic anemia. 6. Pulmonary hypertension. RVSP of 45 mm Hg. Patient Condition: Stable Consults 1. Jose Ruano MD, Nephrology. Procedures 2D Echocardiogram Conclusions: Normal left ventricular systolic function. Normal left ventricular cavity size. Severe concentric left ventricular hypertrophy. Ejection fraction is visually estimated at 55 %. Tissue Doppler/Mitral Doppler indices are consistent with impaired relaxation (Stage I diastolic dysfunction). Mitral valve leaflets appear mildly thickened. Mild mitral annular calcification. Trace mitral regurgitation. Aortic sclerosis without significant stenosis. Normal appearance of the tricuspid valve. The estimated Peak RVSP is 45 mmHg. There is mild tricuspid regurgitation. Small pericardial effusion. Hx of Present Illness Reason for admission: Transferred from hemodialysis facility because of bradycardia. Hyperkalemia. This is a 78-year-old male with a past medical history of hypertension, diabetes mellitus, and end-stage renal disease on hemodialysis . The patient went to his hemodialysis session today at outpatient hemodialysis clinic and he was waiting for his session. Meanwhile, the nurses noticed that the patient has been bradycardic. Therefore, the patient was brought to the emergency room. The patient is not the best historian. He denied any chest pain, dyspnea, nausea, or diaphoresis. He denied any abdominal pain, diarrhea, or constipation. He denied any fevers or chills. In the emergency room, the patient was noticed to be hyperkalemic (7.1). The patient's chest x-ray was showing cardiomegaly and borderline central pulmonary vascular congestion. The patient was treated with potassium exchange resin, regular insulin IV push, calcium chloride, and inhaled albuterol in the emergency room. Hospital Course The patient was admitted to inpatient setting. The patient was monitored on telemetry floor. The patient did not have any significant bradycardia on telemetry monitoring. The patient had evidence of first-degree AV block. The patient's reported bradycardia could have been most probably secondary to his underlying hyperkalemia. The patient's hyperkalemia was treated with potassium exchange resin, calcium chloride, and IV insulin in the emergency room followed by ultrafiltration as per nephrology. The patient was noticed to be oriented times 1-2 on the day of admission that improved with correcting the patient's underlying electrolyte imbalances. The patient's chronic problems include hypertension. He was maintained on antihypertensives. The patient also reported history of diabetes mellitus. Therefore, the patient was started on sliding scale insulin along with basal insulin. However, the patient's hemoglobin A1c was found to be 4.8, indicating burned-out diabetes mellitus. Therefore, the patient's basal insulin was discontinued. Upon discharge, the patient will be off any antidiabetic medications. The patient has underlying normocytic anemia, most probably secondary to underlying chronic kidney disease. The patient's H&H remained stable. The patient received 2 sessions of hemodialysis with improvement in the patient's potassium. The patient is stable to be discharged home, to be followed up with outpatient hemodialysis clinic and outpatient primary care physician. Discharge Instructions 1. Resume home medications. 2. Take a low potassium diet. 3. Follow-up with your hemodialysis clinic as scheduled. 4. Follow-up with your primary care physician in 2 weeks. 5. Please go to the nearest emergency room if you have any significant shortness of breath, chest pain, or any other unusual signs/symptoms. The patient verbalized understanding of his discharge instructions. At this time I would like to thank Dr. Ruano for seeing the patient and providing clinical recommendations. The patient was seen in collaboration with Dr. Adhikari. Home Meds Reported Medications Aspirin* (Aspirin* Chew) 81 Mg Tab.chew, 81 MG PO DAILY, TAB.CHEW 02/26/19 Losartan Potassium* (Losartan Potassium*) 25 Mg Tablet, 25 MG PO DAILY, TAB 02/25/19 Metoprolol Tartrate* (Lopressor*) 25 Mg Tab, 25 MG PO BID, #60 TAB 02/25/19 Sevelamer Carbonate* (Renvela*) 800 Mg Tablet, 1.6 GM PO WITH MEALS, TAB 02/25/19 Amlodipine Besylate* (Amlodipine Besylate*) 10 Mg Tablet, 10 MG PO DAILY, #30 TAB 02/25/19 Discontinued Reported Medications Furosemide* (Furosemide*) 40 Mg Tablet, 40 MG PO BID, TAB 02/25/19 Hydralazine Hcl* (Hydralazine Hcl*) 50 Mg Tab, 50 MG PO Q6H PRN for HTN, #60 TAB 02/25/19 Follow-up Plan The patient to follow-up with his primary care physician in 1 week. Primary Care Provider Care Physician No Primary Time spent on discharge: > 30 minutes Pending Labs Laboratory Tests Test 02/26/19 12:26 02/26/19 17:38 02/26/19 22:17 02/27/19 06:09 Bedside 185 113 107 Glucose mg/dL (70-220) mg/dL (70-220) mg/dL (70-220) White Blood 3.9 Count 10^3/ul (4.8-1 0.8) Red Blood 3.23 Count 10^6/ul (4.70- 6.10) Hemoglobin 10.0 g/dl (14.0-18. 0) Hematocrit 30.3 % (42.0-52.0) Mean 93.8 Corpuscular fl (82.0-101.0 Volume ) Mean 31.0 Corpuscular pg (29.0-33.0) Hemoglobin Mean 33.0 Corpuscular g/dl (32.0-37. Hemoglobin Conc 0) ent Red Cell 13.1 Distribution % (11.5-14.5) Width Platelet Count 84 10^3/UL (140-4 15) Mean Platelet 13.3 Volume fl (7.4-10.4) Immature 0.300 Granulocytes % % (0.001-0.429 ) Neutrophils % 54.9 % (39.0-77.0) Lymphocytes % 32.8 % (15.0-51.0) Monocytes % 10.2 % (0.0-11.0) Eosinophils % 1.3 % (0.0-7.0) Basophils % 0.5 % (0.0-2.0) Nucleated Red 0.0 Blood Cells % /100WBC (0.0-0 .0) Immature 0.010 Granulocytes # 10^3/ul (0.0-0 .031) Neutrophils # 2.2 10^3/ul (1.6-7 .5) Lymphocytes # 1.3 10^3/ul (0.8-2 .9) Monocytes # 0.4 10^3/ul (0.3-0 .9) Eosinophils # 0.1 10^3/ul (0.0-0 .5) Basophils # 0.0 10^3/ul (0.0-0 .1) Nucleated Red 0.0 Blood Cells # 10^3/ul (0.0-0 .0) Sodium Level 133 mmol/L (135-14 4) Potassium 6.0 Level mmol/L (3.5-5. 1) Chloride Level 97 mmol/L (97-110 ) Carbon Dioxide 24 Level mmol/L (21-31) Anion Gap 12 (5-13) Blood Urea 45 Nitrogen mg/dl (7-20) Creatinine 7.10 mg/dl (0.61-1. 24) Est Glomerular mL/min (>60) Filtrat Rate mL/min Glucose Level 70 mg/dl (70-220) Calcium Level 9.1 mg/dl (8.4-10. 2) Phosphorus 4.7 Level mg/dl (2.5-4.9 ) Magnesium 2.0 Level mg/dl (1.7-2.5 ) Test 02/27/19 08:12 Bedside 71 Glucose mg/dL (70-220) SUKHDEV COBURN NP Feb 27, 2019 10:30
--- NOTE | 2019-02-27 10:30 | PDOCDIS ---
Discharge Instructions CONDITION [id number] Patient Condition: [id number] Stable HOME CARE INSTRUCTIONS: [id number] Special Diet: [id number] Low potassium. OTHER ORDERS: Other Orders: 1. Resume home medications. 2. Take a low potassium diet. 3. Follow-up with your hemodialysis clinic as scheduled. 4. Follow-up with your primary care physician in 2 weeks. 5. Please go to the nearest emergency room if you have any significant s hortness of breath, chest pain, or any other unusual signs/symptoms. SUKHDEV COBURN NP Feb 27, 2019 10:30
--- NOTE | 2019-02-27 15:33 | CONS ---
Assessment/Plan Assessment/Plan Assessment/Plan (Daily) 1. acute hyperkalemia- now resolved 2. acute fluid overload 3. Bradycardia 4. ESRD on HD TTS schedule 5. H/o HTN 6. H/O DM II 7. H/o HL Plan: HD today, and plan for discharge after that Pt regular schedule for HD Is Sun, , Sunday and he follows at [facility] Continue current BP meds, avoid B perlita, Clonidine due to current bradycardia will follow up Consultation Date/Type/Reason Admit Date/Time Feb 25, 2019 at 14:24 Initial Consult Date 02/25/19 Type of Consult Nephrology Requesting Provider: SUKHDEV COBURN NP Date/Time of Note DATE: 02/27/19 TIME: 15:33 Exam/Review of Systems Exam Vitals Vital Signs Date Temp Pulse Resp B/P (MAP) Pulse Ox O2 O2 Flow FiO2 Time Delivery Rate 02/27/19 65 11:20 02/27/19 97.6 20 144/68 97 Room Air 11:07 (93) 02/25/19 10.0 14:00 Intake and Output 02/26/19 02/26/19 02/27/19 1515:00 23:00 07:00 IntakeIntake Total 650 ml OutputOutput Total 3600 ml BalanceBalance -3600 ml 650 ml Results Result Diagram: 02/27/19 0609 02/27/19 1217 Results 24hrs Laboratory Tests Test 02/26/19 17:38 02/26/19 22:17 02/27/19 06:09 02/27/19 08:12 Bedside Glucose 113 107 71 White Blood Count 3.9 #L Red Blood Count 3.23 L Hemoglobin 10.0 L Hematocrit 30.3 L Mean Corpuscular 93.8 Volume Mean Corpuscular 31.0 Hemoglobin Mean Corpuscular 33.0 Hemoglobin Concent Red Cell 13.1 Distribution Width Platelet Count 84 L Mean Platelet Volume 13.3 H Immature 0.300 Granulocytes % Neutrophils % 54.9 Lymphocytes % 32.8 Monocytes % 10.2 Eosinophils % 1.3 Basophils % 0.5 Nucleated Red Blood 0.0 Cells % Immature 0.010 Granulocytes # Neutrophils # 2.2 Lymphocytes # 1.3 Monocytes # 0.4 Eosinophils # 0.1 Basophils # 0.0 Nucleated Red Blood 0.0 Cells # Sodium Level 133 L Potassium Level 6.0 H Chloride Level 97 Carbon Dioxide Level 24 Anion Gap 12 Blood Urea Nitrogen 45 #H Creatinine 7.10 #H Est Glomerular Filtrat Rate mL/min Glucose Level 70 Calcium Level 9.1 Phosphorus Level 4.7 Magnesium Level 2.0 Test 02/27/19 12:04 02/27/19 12:17 Bedside Glucose 97 Potassium Level 4.6 Medications Medication Current Medications Dextrose (D50w Syringe) ONCE PRN IV DECREASED GLUCOSE; Start 02/25/19 at 13:30 IV Flush (NS 3 ml) 3 ml PER PROTOCOL IV ; Start 02/25/19 at 15:30 Ondansetron HCl (Zofran Inj) 4 mg Q6H PRN IV NAUSEA/VOMITING; Start 02/25/19 at 15:30 Acetaminophen (Tylenol Tab) 650 mg Q6H PRN PO .PAIN 1-3 OR TEMP; Start 02/25/19 at 15:30 Heparin Sodium (Porcine) (Heparin (5000 Units/1ml)) 5,000 unit Q12 SC Last administered on 02/27/19at 08:15; Admin Dose 5,000 UNIT; Start 02/25/19 at 21:00 Amlodipine Besylate (Norvasc) 10 mg DAILY PO ; Start 02/26/19 at 09:00 Losartan Potassium (Cozaar) 25 mg DAILY PO ; Start 02/26/19 at 09:00 Metoprolol Tartrate (Lopressor) 25 mg BID PO Last administered on 02/26/19at 22:17; Admin Dose 25 MG; Start 02/25/19 at 21:00 Sevelamer Carbonate (Renvela) 1.6 gm WITH MEALS PO Last administered on 02/27/19at 12:04; Admin Dose 1.6 GM; Start 02/25/19 at 18:00 Insulin Aspart (Novolog Insulin Pen) NOVOLOG *MILD* ALGORITHM WITH MEALS BEDTIME SC Last administered on 02/26/19at 12:29; Admin Dose 2 UNIT; Start 02/25/19 at 18:00 Miscellaneous Information 1 ea NOTE XX ; Start 02/25/19 at 16:00 Glucose (Glutose) 15 gm Q15M PRN PO DECREASED GLUCOSE; Start 02/25/19 at 16:00 Glucose (Glutose) 22.5 gm Q15M PRN PO DECREASED GLUCOSE; Start 02/25/19 at 16:00 Dextrose (D50w Syringe) 25 ml Q15M PRN IV DECREASED GLUCOSE; Start 02/25/19 at 16:00 Dextrose (D50w Syringe) 50 ml Q15M PRN IV DECREASED GLUCOSE; Start 02/25/19 at 16:00 Glucagon (Glucagen) 1 mg Q15M PRN IM DECREASED GLUCOSE; Start 02/25/19 at 16:00 Glucose (Glutose) 15 gm Q15M PRN BUCCAL DECREASED GLUCOSE; Start 02/25/19 at 16:00 Heparin Sodium (Porcine) (Heparin (1000 Units/ml)) 1,000 unit WITH DIALYSIS HE Last administered on 02/27/19at 09:09; Admin Dose 1,000 UNIT; Start 02/25/19 at 16:00 Heparin Sodium (Porcine) (Heparin (1000 Units/ml)) 1,000 unit WITH DIALYSIS HE ; Start 02/25/19 at 16:00 Albumin Human 100 ml @ 100 mls/hr WITH DIALYSIS PRN IV SBP <90 DURING DIALYSIS; Start 02/25/19 at 16:00 Sodium Chloride (NS) -To prime the dialy... DIRECTED FOR HD PRN IV HD; Start 02/25/19 at 16:00 Hydralazine HCl (Apresoline) 10 mg Q4H PRN IV ELEVATED SYSTOLIC BP Last administered on 02/27/19at 01:45; Admin Dose 10 MG; Start 02/27/19 at 01:00 ESTEFANÍA SANCHEZ MD Feb 27, 2019 15:33
== END 2019-02-27 16:47 | disposition home or self-care (01) | DRG 640 ==
LOC: E/R 13:01 → TEL 14:24 → EDBEDREQ 15:10
PROVIDERS: ADMIT Internal Medicine; ATTEND Internal Medicine
PROC: 5A1D70Z Performance of Urinary Filtration, Intermittent, Less than 6 Hours Per Day (ICD-10-PCS; 2019-02-25)
PROC: 5A1D70Z Performance of Urinary Filtration, Intermittent, Less than 6 Hours Per Day (ICD-10-PCS; principal; 2019-02-26)
DX: E87.5 Hyperkalemia (principal); G92 Toxic encephalopathy; N18.6 End stage renal disease; I12.0 Hypertensive chronic kidney disease with stage 5 chronic kidney disease or end stage renal disease; D61.818 Other pancytopenia; E87.70 Fluid overload, unspecified; E11.22 Type 2 diabetes mellitus with diabetic chronic kidney disease; I27.20 Pulmonary hypertension, unspecified; R56.9 Unspecified convulsions; R00.1 Bradycardia, unspecified; D64.9 Anemia, unspecified; D63.1 Anemia in chronic kidney disease; N18.9 Chronic kidney disease, unspecified; E78.5 Hyperlipidemia, unspecified; Z79.4 Long term (current) use of insulin; Z99.2 Dependence on renal dialysis; Z87.891 Personal history of nicotine dependence
CPT/HCPCS: 36415; 71045; 80048; 80053; 80061; 82550; 82553; 82962; 83036; 83735; 84100; 84132; 84484; 85025; 85610; 85730; 86706; 87340; 90935; 93005; 93306; 94664; 96374; 96375; J0360; J1644; J1815